=== PATIENT | male | born 1960 | race Caucasian/White ===

== ENCOUNTER → 2017-01-14 | Outpatient (CLI) | payer BC ==
--- NOTE | 2017-01-14 22:58 | PN ---
DATE OF SERVICE: 01/14/2017 This patient is a 56-year-old gentleman who has been followed in the sleep center for treatment of obstructive sleep apnea/hypopnea syndrome. Patient has extremely severe obstructive sleep apnea. He is on treatment with CPAP at the pressure 15 cm of water. I checked his CPAP unit. Usage for more than 4 hours is 30 out of 30 nights; subsequently 100% of the time. Average usage 7.4 hours. Patient's weight is about the same as during the last visit; it was 350 last visit and 349 today. [place] Sleepiness Scale is 8. No snoring with the machine. MEDICATIONS: 1. Androgel. 2. Lisinopril. 3. Metformin. 4. Hydrochlorothiazide. 5. Atenolol. 6. Allopurinol. 7. Synthroid. PHYSICAL EXAMINATION: Patient in no distress. VITAL SIGNS: BP 190/95, HR 60, RR 16. Height 5 feet 8 inches. Weight 349. BMI 53. Temperature 97.9. Oxygen saturation at room air 96%. HEENT: PERRLA, EOMI. Evaluation of oropharynx showed tongue protrudes midline; low position of soft palate. NECK: Supple. No JVD. Thyroid is not palpable. LUNGS: Clear to percussion and to auscultation. Good air exchange. No wheezing or rhonchi. HEART: S1, S2 regular. No murmurs, gallops or rubs. ABDOMEN: Obese. EXTREMITIES: No clubbing or cyanosis. EXPLOITATION ANALYST: Awake, alert, and oriented x3. Cranial nerves 2 to 7 intact. There is no fasciculation or atrophy noted. No focal deficits observed. IMPRESSION: 1. Severe obstructive sleep apnea-hypopnea syndrome. Apnea-hypopnea index 92. Patient has demonstrated 100% compliance with treatment on CPAP at 15 cm of water, benefitting from treatment. 2. Obesity. 3. Hypertension. 4. Gout. 5. Hyperlipidemia. 6. Hypothyroidism. PLAN: 1. Continue treatment with CPAP every night for the whole night. 2. Prescription for all necessary CPAP supplies, including tube, filters and mask. 3. Losing weight. 4. Sleep hygiene with regular time in bed for at least 8 hours. 5. No driving if feeling any sleepiness. 6. Follow-up visit in one year. Thank you very much for allowing me to participate in the management of your patient. Sincerely, Jean Lackey MD, PhD, FAASM. Diplomat of [place] Board [employer] Sleep Medicine, Sleep Medicine Board by [place] [employer], [place] Board of [employer] Medicine
== END | disposition home or self-care (01) ==
LOC: SLEEP 14:53
PROVIDERS: ATTEND Internal Medicine
DX: G47.33 Obstructive sleep apnea (adult) (pediatric) (principal); E66.9 Obesity, unspecified; Z68.43 Body mass index [BMI] 50.0-59.9, adult; I10 Essential (primary) hypertension; M10.9 Gout, unspecified; E78.5 Hyperlipidemia, unspecified; E03.9 Hypothyroidism, unspecified; Z79.899 Other long term (current) drug therapy; Z79.84 Long term (current) use of oral hypoglycemic drugs

== ENCOUNTER 2017-04-12 07:09 | Day surgery (SDC) | payer BC ==
[2017-04-07 15:39] VITALS: BMI 50.2
[~2017-04-12 07:09] MED LIST: LACTATED RINGERS 1,000 ML IV ONE; LACTATED RINGERS 1,000 ML IV SCH; LIDOCAINE 1% 20 ML VIAL (10MG/ML) FOR IV START INTRADERMA PRN
[2017-04-12 07:48] VITALS: RESP 16; TEMP 98.8
[2017-04-12 07:52] LABS: Glucose,Whole Blood 170 mg/dL (75-99)
[2017-04-12] MEDS ORDERED: MIDAZOLAM 2 MG/2 ML VIAL ONE (08:35)
[2017-04-12] MEDS ORDERED: PROPOFOL 10 MG/ML 20 ML VIAL IV ONE (08:35)
[2017-04-12] MEDS ORDERED: fentaNYL (PF) 50 MCG/ML 2 ML AMP ONE (08:35)
--- NOTE | 2017-04-12 09:06 | P.PCN ---
Date of Procedure: 04/12/17 Preoperative Diagnosis: Postoperative Diagnosis: Procedure(s) Performed: Procedure: Total colonoscopy. Preoperative diagnosis: Screening for neoplasia. Postoperative diagnosis: Mild sigmoid diverticulosis. Preparation: HalfLytely prep. Sedation: Was provided by anesthesia. Brief clinical history: The patient is a 56-year-old male who is scheduled for this evaluation for screening for neoplasia. There is family history of colon cancer in his maternal grandfather. The patient has history of intermittent rectal bleeding and frequent bowel movements. His prior exam was in July 2010. At that time I recommended a repeat exam in 5 years. Procedure: With the patient on his left lateral decubitus position and after informed consent and adequate sedation, the perianal area was inspected and it did not show any fissures or fistulas. There were no masses felt on digital rectal examination. The Olympus CFQ 160L video colonoscope was then inserted in the rectum in the usual fashion and advanced to the cecum. There was occasional small diverticular orifice seen in the sigmoid with no evidence of acute diverticulitis or strictures. No polyps or tumors were seen. The mucosa appeared healthy. I retroflexed the endoscope in the rectum before the endoscope was withdrawn. No obvious abnormalities were noted. The patient tolerated the procedure well. Plan: The patient was reassured. Discussed dietary measures. He will follow up with you as planned and I recommended repeat exam in 5 years. Implants: Indications for Procedure: Operative Findings: Description of Procedure:
[2017-04-12 09:22] VITALS: BP 164/75; PULSE 57
== END 2017-04-12 09:58 | disposition home or self-care (01) ==
LOC: ORWHC2ENDO 07:09
DX: K57.30 Diverticulosis of large intestine without perforation or abscess without bleeding (principal); Z80.0 Family history of malignant neoplasm of digestive organs; I10 Essential (primary) hypertension; E78.5 Hyperlipidemia, unspecified; G47.33 Obstructive sleep apnea (adult) (pediatric); Z99.89 Dependence on other enabling machines and devices; Z87.891 Personal history of nicotine dependence; E11.9 Type 2 diabetes mellitus without complications; Z79.84 Long term (current) use of oral hypoglycemic drugs; E07.9 Disorder of thyroid, unspecified; Z79.899 Other long term (current) drug therapy; Z88.8 Allergy status to other drugs, medicaments and biological substances
CPT/HCPCS: 45378; J2250; J3010; J2704

== ENCOUNTER → 2017-07-07 | Outpatient (CLI) | payer BC ==
--- NOTE | 2017-07-08 05:57 | MR ---
EXAMINATION TYPE: MR shoulder RT wo con DATE OF EXAM: 07/07/2017 COMPARISON: NONE HISTORY: Right shoulder pain with difficulty raising overhead since trip and fall injury December 07, 2015 per patient TECHNIQUE: Multiplanar, multisequence imaging of the right shoulder is performed without contrast. FINDINGS: Rotator Cuff: There is full-thickness retracted tear of supraspinatus tendon with tendon retracted ro ughly 3 cm to level of the acromion seen best parasagittal image 13. Infraspinatus tendon also shows full-thickness tear retracted roughly 4 cm to level of acromioclavicular joint. Mild to moderate atro phy of supraspinatus muscle bulk is seen. Advanced atrophy of the infraspinatus muscle bulk is noted. Teres minor tendon and bulk are maintained. There is increased signal in the subscapularis tendon. Acromioclavicular Joint: There is joint space loss and capsular hypertrophy at acromioclavicular join t. Inferior fat plane is effaced. Distal acromion morphology is unremarkable. Glenohumeral Joint: There is high riding humeral head. There is small to moderate-sized glenohumeral joint effusion. Joint space loss is seen along superior aspect. No significant spurring is noted. Labrum: The labrum appears grossly intact given limitation of non-arthrogram study. Biceps Tendon: The long head of biceps is in normal location within bicipital groove. Bone marrow signal: No focal abnormal marrow signal is appreciated. Other: No additional significant abnormality is appreciated. IMPRESSION: 1. Full-thickness retracted tears of supraspinatus and infraspinatus tendons felt to be chronic in ag e as there is muscular atrophy and high riding humeral head redemonstrated. 2. Background moderate to advanced degenerative changes at acromioclavicular joint and more mild to m oderate degenerative changes at glenohumeral joint. 3. Moderate subscapularis tendinitis.
== END | disposition home or self-care (01) ==
LOC: RADMRIMAIN 16:41
PROVIDERS: ATTEND Family Medicine
DX: S46.011A Strain of muscle(s) and tendon(s) of the rotator cuff of right shoulder, initial encounter (principal); M75.91 Shoulder lesion, unspecified, right shoulder

== ENCOUNTER → 2018-06-23 | Outpatient (CLI) | payer BC ==
--- NOTE | 2018-06-23 18:36 | PN ---
PROGRESS NOTE DATE OF SERVICE: 06/23/2018 57-year-old gentleman who has been followed in Sleep Center for treatment of obstructive sleep apnea-hypopnea syndrome. Patient continued to use his equipment every night for the whole night without any significant problems. No snoring with the machine. He is getting all of his some CPAP supplies and time. [place] Sleepiness Scale today is 5, which is normal. No significant changes of weight. MEDICATIONS: Testosterone, metformin atenolol, losartan, allopurinol, Januvia, amlodipine, Synthroid, fenofibrate. PHYSICAL EXAM: GENERAL Patient in no distress. VITAL SIGNS BP 154/74, HR 64, RR 16, height 5 foot 8 inches, weight 351, BMI 53.3, temperature 98.9, oxygen saturation on room air 95%. HEENT PERRLA, EOMI, evaluation of oropharynx showed low position of soft palate. NECK Supple, no JVD. Thyroid is not palpable. LUNGS Clear to percussion and to auscultation. Good air exchange. No wheezing or rhonchi. HEART S1, S2 regular. No murmurs, gallops, or rubs. ABDOMEN Obese. Soft and nontender. Bowel sounds are present. No organomegaly appreciated. EXTREMITIES No clubbing or cyanosis. ORTHOPHOTO TECH/DRAFTSMAN Awake, alert, and oriented X3. Cranial nerves 2 to 7 intact. There is no fasciculation or atrophy. noted. No focal deficits observed. IMPRESSION: 1. Severe obstructive sleep apnea-hypopnea syndrome. The patient continued to use his CPAP equipment every night without problems benefitting from treatment. 2. Obesity. 3. Hypertension. 4. Gout. 5. Hyperlipidemia. 6. Hypothyroidism. 7. Diabetes mellitus. PLAN: 1. Patient will continue to use CPAP equipment every night for the whole night. 2. Losing weight. 3. Sleep hygiene with regular time in bed for at least 8 hours. 4. No driving if feeling sleepiness. 5. Will maintain prescription for all necessary CPAP supplies including mask, tube, filters. Thank you very much for allowing me to participate in management of your patient. Sincerely, Jean Lackey MD, PhD, FAASM Diplomat of [place] [employer] Specialties [place] Board of Internal Medicine Microbiology Analyst of [facility] [place] MMODL / IJN: [id number] /
== END | disposition home or self-care (01) ==
LOC: SLEEP 16:29
PROVIDERS: ATTEND Internal Medicine
DX: G47.33 Obstructive sleep apnea (adult) (pediatric) (principal); E66.9 Obesity, unspecified; I10 Essential (primary) hypertension; M10.9 Gout, unspecified; E78.5 Hyperlipidemia, unspecified; E03.9 Hypothyroidism, unspecified; E11.9 Type 2 diabetes mellitus without complications; Z68.43 Body mass index [BMI] 50.0-59.9, adult; Z99.89 Dependence on other enabling machines and devices; Z79.84 Long term (current) use of oral hypoglycemic drugs; Z79.899 Other long term (current) drug therapy

== ENCOUNTER → 2018-12-01 | Outpatient (CLI) | payer BC ==
--- NOTE | 2018-12-01 18:08 | PN ---
PROGRESS NOTE DATE OF SERVICE: 12/01/2018. 58-year-old gentleman has been followed in Sleep Center for treatment of obstructive sleep apnea-hypopnea syndrome. Patient continued to use his CPAP equipment every night for the whole night. No snoring with the machine. [place] Sleepiness Scale is 8, which is normal. I checked his CPAP unit. Usage is every night for more than 4 hours. Average usage 8.1 hours. CPAP is 15 cm of water. Ramp is 15 minutes. Some of the cables of the machine are old and close to be broken. Machine is close to 5-years-old. MEDICATIONS: Testosterone metformin, atenolol, losartan, Allopurinol, Januvia, amlodipine, Synthroid, fenofibrate. PHYSICAL EXAM: Patient in no distress. BP 147/83, HR 61, RR 16, height 5 feet 9 inches, weight 352.6 with body mass index 51.9, temperature 98.2, oxygen saturation at room air 95% with a normal gait. Oropharynx: Low position of soft palate. Mallampati 4. Neck Supple, no JVD. Thyroid is not palpable. LUNGS Clear to percussion and to auscultation. Good air exchange. No wheezing or rhonchi. HEART S1, S2 regular. No murmurs, gallops, or rubs. ABDOMEN: Obese. Soft and nontender. Bowel sounds are present. No organomegaly appreciated. EXTREMITIES No clubbing or cyanosis. MANAGER HARDWARE Awake, alert, and oriented X3. Cranial nerves 2 to 7 intact. There is no fasciculation or atrophy. noted. No focal deficits observed. IMPRESSION: 1. Severe obstructive sleep apnea-hypopnea syndrome patient demonstrated 100% compliance with treatment benefitting from treatment. 2. Obesity. 3. Hypertension. 4. Gout. 5. Hypothyroidism. 6. Hyperlipidemia. 7. Diabetes mellitus type 2. 8. Low testosterone level. PLAN: 1. Patient will continue CPAP equipment every night for the whole night. 2. Losing weight. 3. Sleep hygiene with regular time in bed for at least 8 hours. 4. No driving if feeling sleepiness. 5. Prescription for all necessary CPAP supplies including mask, tube and filters. The patient will replace his CPAP unit, it is old. Thank you very much for allowing me to participate in management of your patient. Sincerely, Jean Lackey MD, PhD, FAASM Diplomat of [place] [employer] Specialties [place] Board of Internal Medicine Interim Controller of [facility] [place] MMREI / ALEXANDRON: [id number] /
== END ==
LOC: SLEEP 15:51
PROVIDERS: ATTEND Internal Medicine
DX: G47.33 Obstructive sleep apnea (adult) (pediatric) (principal); E66.9 Obesity, unspecified; I10 Essential (primary) hypertension; M10.9 Gout, unspecified; E03.9 Hypothyroidism, unspecified; E78.5 Hyperlipidemia, unspecified; E11.9 Type 2 diabetes mellitus without complications; E34.9 Endocrine disorder, unspecified; Z99.89 Dependence on other enabling machines and devices; Z68.43 Body mass index [BMI] 50.0-59.9, adult; Z79.899 Other long term (current) drug therapy; Z79.84 Long term (current) use of oral hypoglycemic drugs

== ENCOUNTER → 2019-12-14 | Outpatient (CLI) | payer BC ==
--- NOTE | 2019-12-14 17:15 | PN ---
PROGRESS NOTE DATE OF SERVICE: 12/14/2019 This patient is a 59-year-old gentleman who has been followed in Sleep Center for treatment of obstructive sleep apnea-hypopnea syndrome. The patient successfully continues to use CPAP equipment every night for the whole night. I checked his CPAP unit, which is old. The wire connected to the electrical supply is broken. Usage of the machine is 30/30 nights for more than 4 hours with average usage 8.2 hours per night. CPAP pressure is 15 cm of water. [place] Sleepiness Scale today is 9. MEDICATIONS: Testosterone, metformin, losartan, hydrochlorothiazide, fenofibrate, amlodipine, atenolol, glimepiride, hydralazine, allopurinol, Synthroid, Januvia. PHYSICAL EXAMINATION: GENERAL: A pleasant patient in no distress. VITAL SIGNS: BP 159/89, HR 62, RR 18, height 5 feet 9-1/4 inches, weight 365.4 pounds, body mass index 53.5. Patient's weight has increased by 13 pounds compared with the previous visit. Temperature 98.4. Oxygen saturation at room air 96%. HEENT: PERRLA, EOMI. Evaluation of oropharynx showed tongue protrudes midline. Extremely low position of soft palate. Mallampati IV. NECK: Supple. No JVD. Thyroid is not palpable. LUNGS: Clear to percussion and to auscultation. Good air exchange. No wheezing or rhonchi. HEART: S1, S2 regular. No murmurs, gallops or rubs. ABDOMEN: Obese. EXTREMITIES: No clubbing or cyanosis. DIRECTOR CLINICAL RESEARCH: Awake, alert, and oriented X3. Cranial nerves 2 to 7 intact. There is no fasciculation or atrophy. noted. No focal deficits observed. IMPRESSION: 1. Severe obstructive sleep apnea-hypopnea syndrome. Patient demonstrated 100% compliance with treatment, benefitting from treatment. 2. CPAP unit is old. Electrical cord is broken. MMODL / IJN: [id number] /
--- NOTE | 2019-12-14 17:21 | PN ---
PROGRESS NOTE ADDENDUM TO PROGRESS NOTE: DATE OF SERVICE: 12/14/2019 IMPRESSION: 1. Severe obstructive sleep apnea-hypopnea syndrome. Patient demonstrated 100% compliance with treatment, benefitting from treatment. His CPAP unit is old, with some problems with the wire connected to the electrical supply. 2. Obesity. 3. Hypertension. 4. Gout. 5. Hypothyroidism. 6. Hyperlipidemia. 7. Diabetes mellitus, type 2. 8. Low testosterone level. PLAN: 1. Patient will continue to use CPAP therapy every night for the whole night. 2. Prescription for new CPAP unit and all necessary supplies. 3. Losing weight. 4. No driving if feeling any sleepiness. Thank you very much for allowing me to participate in the management of your patient. Sincerely, Jean Lackey MD, PhD, FAASM Diplomat of [place] [employer] Medical Specialties [place] Board of Internal Medicine Rougher Helper of [facility] [place] RITESHL / CECILIO: [id number] /
== END | disposition home or self-care (01) ==
LOC: SLEEP 15:58
PROVIDERS: ATTEND Internal Medicine
DX: G47.33 Obstructive sleep apnea (adult) (pediatric) (principal); E66.9 Obesity, unspecified; I10 Essential (primary) hypertension; M10.9 Gout, unspecified; E03.9 Hypothyroidism, unspecified; E78.5 Hyperlipidemia, unspecified; E11.9 Type 2 diabetes mellitus without complications; N50.89 Other specified disorders of the male genital organs; Z99.89 Dependence on other enabling machines and devices; Z68.43 Body mass index [BMI] 50.0-59.9, adult; Z79.890 Hormone replacement therapy; Z79.84 Long term (current) use of oral hypoglycemic drugs; Z79.899 Other long term (current) drug therapy

== ENCOUNTER → 2020-12-11 | Outpatient (CLI) | payer OTHER ==
--- NOTE | 2020-12-11 21:03 | SFUN ---
SLEEP CENTER FOLLOW UP NOTE DATE OF SERVICE: 12/11/2020 This is a 60-year-old gentleman who has been followed in Sleep Center for treatment of obstructive sleep apnea-hypopnea syndrome. Patient continues to use his CPAP equipment every night for the whole night. He does not snore with the machine. [place] Sleepiness Scale today is 7, which is normal. I checked his CPAP unit. CPAP pressure is 15 cm of water. Usage is 29/30 nights for more than 4 hours. Leak is 25 L/minute, which is borderline. Apnea-hypopnea index is only 1.2, which is absolutely perfect. MEDICATIONS: 1. Losartan 100/25 mg once a day. 2. Metformin 500 mg twice a day by 2 tablets. 3. Amlodipine 10 mg once a day. 4. Fenofibrate 200 mg once a day. 5. Atenolol 50 mg twice a day. 6. Glimepiride 4 mg once a day. 7. Januvia 100 mg once a day. 8. Allopurinol 300 mg once a day. 9. Synthroid once a day. 10.Testosterone gel 75 grams once a day. PHYSICAL EXAMINATION: GENERAL: A pleasant gentleman without distress. VITAL SIGNS: BP 159/75, HR 51, RR 18, height 5 feet 8-1/2 inches, weight 351.4 pounds. Patient lost 14 pounds since his previous visit. HEENT: [place]. Evaluation of oropharynx showed tongue protrudes midline. Extremely low position of soft palate. Mallampati IV. NECK: Supple. No JVD. Thyroid is not palpable. LUNGS: Clear to percussion and to auscultation. Good air exchange. No wheezing or rhonchi. HEART: S1, S2 regular. No murmurs, gallops or rubs. ABDOMEN: Soft and nontender. Bowel sounds are present. No organomegaly appreciated. EXTREMITIES: No clubbing or cyanosis. NIGHT CUSTODIAN: Awake, alert, and oriented X3. Cranial nerves 2 to 7 intact. There is no fasciculation or atrophy. noted. No focal deficits observed. IMPRESSION: 1. Severe obstructive sleep apnea-hypopnea syndrome. The patient demonstrated 100% compliance with treatment, benefitting from treatment. 2. Obesity. 3. Hypertension. 4. Gout. 5. Hypothyroidism. 6. Hyperlipidemia. 7. Diabetes mellitus, type 2. 8. Low testosterone level. PLAN: 1. Patient will continue to use PAP equipment every night for the whole night. 2. Sleep hygiene with regular time in bed for at least 7-1/2 to 8 hours. 3. Precautions related to driving. No driving if feeling sleepiness. 4. I will maintain all necessary prescription for PAP supplies including mask, tube, filters. 5. Watching weight. 6. No driving if feeling sleepiness. 7. Follow-up visit in 6 months or earlier if patient has any problems. Thank you very much for allowing me to participate in the management of your patient. Sincerely, Jean Lackey MD, PhD, FAASM Diplomat of [place] [employer] Medical Specialties [place] Board of Internal Medicine Metal Fabrication Supervisor of [facility] [place] MMODL / ALEXANDRON: [id number] /
== END | disposition home or self-care (01) ==
LOC: SLEEP 15:14
PROVIDERS: ATTEND Internal Medicine
DX: G47.33 Obstructive sleep apnea (adult) (pediatric) (principal); E66.9 Obesity, unspecified; I10 Essential (primary) hypertension; M10.9 Gout, unspecified; E03.9 Hypothyroidism, unspecified; E78.5 Hyperlipidemia, unspecified; Z99.89 Dependence on other enabling machines and devices; Z79.899 Other long term (current) drug therapy; Z79.84 Long term (current) use of oral hypoglycemic drugs; Z79.890 Hormone replacement therapy

== ENCOUNTER → 2021-06-03 | Outpatient (CLI) | payer OTHER ==
--- NOTE | 2021-06-03 12:01 | XR ---
EXAM TYPE: LUMBAR SPINE X RAY SERIES COMPARISON: NONE HISTORY: Pain TECHNIQUE: 4 views are submitted. FINDINGS: Alignment is anatomic. The pedicles are intact. The transverse processes are intact. There is a sl ight anterolisthesis grade 1 of L4 on L5.. Multilevel facet arthropathy. Diffuse osteopenia. Multilev el mild degenerative disc disease. Vascular calcifications noted. IMPRESSION: 1. Diffuse osteopenia with mild multilevel degenerative disc disease not very slight anterolisthesis of L4 on L5 appears degenerative. 2. Multilevel facet arthropathy most marked at levels L4-5 and L5-S1.
== END | disposition home or self-care (01) ==
LOC: RADXRYALE 11:39
PROVIDERS: ATTEND Family Medicine
DX: M51.36 Other intervertebral disc degeneration, lumbar region (principal); M12.88 Other specific arthropathies, not elsewhere classified, other specified site
CPT/HCPCS: 72110

== ENCOUNTER → 2021-07-17 | Outpatient (CLI) | payer OTHER ==
--- NOTE | 2021-07-17 17:49 | SFUN ---
SLEEP CENTER FOLLOW UP NOTE DATE OF SERVICE: 07/17/2021 This 60-year-old gentleman has been followed in Sleep Center for treatment of obstructive sleep apnea-hypopnea syndrome. The patient continues to use his CPAP equipment during the night, every night and for the whole night. He actually has another CPAP unit [place] and sometimes uses another machine. [place] Sleepiness Scale is 7. I checked his CPAP unit. CPAP pressure is 15 cm of water. Usage is 15/30 nights for the last month with average usage 9.5 hours per night. Leak is 20 L/minute. Apnea- hypopnea index 1.3. On other nights, according to the patient, he is using another CPAP unit. MEDICATIONS: 1. Atenolol 50 mg twice a day. 2. Synthroid 50 mcg once a day. 3. Fenofibrate 200 mg once a day. 4. Allopurinol 300 mg once a day. 5. Hydralazine 50 mg twice a day. 6. Norvasc 10 mg once a day. 7. Metformin 500 mg twice a day. 8. Glimepiride 4 mg twice a day. 9. Losartan/hydrochlorothiazide 10/25 mg once a day. 10.Januvia 100 mg once a day. 11.Testosterone. 12.Gabapentin 300 mg 3 times a day. PHYSICAL EXAMINATION: GENERAL: Pleasant patient in no distress. VITAL SIGNS: BP 167/75, HR 54, RR 15, height 5 feet 9 inches, weight 361.8 pounds, body mass index 51.9. The patient's weight is the same as 6 months ago. Temperature 97.5. Oxygen saturation at room air 95%. HEENT: PERRLA, EOMI, evaluation of oropharynx showed tongue protrudes midline. Extremely low position of soft palate; Mallampati IV. NECK: Supple, no JVD. Thyroid is not palpable. LUNGS: Clear to percussion and to auscultation. Good air exchange. No wheezing or rhonchi. HEART: S1, S2 regular. No murmurs, gallops, or rubs. ABDOMEN: Obese. EXTREMITIES: No clubbing or cyanosis. CUSTOMER LIAISON: Awake, alert, and oriented X3. Cranial nerves 2 to 7 intact. There is no fasciculation or atrophy. noted. No focal deficits observed. IMPRESSION: 1. Severe obstructive sleep apnea-hypopnea syndrome. Normal respiration on CPAP machine, benefitting from treatment. 2. Obesity. 3. Hypertension. 4. Gout. 5. Hypothyroidism. 6. Hyperlipidemia. 7. Diabetes mellitus, type 2. 8. Low testosterone level. PLAN: 1. The patient was recommended to bring his second CPAP unit for the next visit to check both CPAP units. 2. Patient will continue to use PAP equipment every night for the whole night. 3. Sleep hygiene with regular time in bed for at least 7-1/2 to 8 hours. 4. Precautions related to driving. No driving if feeling sleepiness. 5. I will maintain all necessary prescription for PAP supplies including mask, tube, filters. 6. Watching weight. 7. Follow-up visit in 6 months or earlier if patient has any problems. Thank you very much for allowing me to participate in the management of your patient. Sincerely, Jean Lackey MD, PhD, FAASM Diplomat of [place] [employer] Specialties Sleep Medicine Board of [place] Board of Internal Medicine Isolation Washer of [facility] [place] MMODL / ALEXANDRON: [id number] /
== END ==
LOC: SLEEP 14:01
PROVIDERS: ATTEND Internal Medicine
DX: G47.33 Obstructive sleep apnea (adult) (pediatric) (principal); E66.9 Obesity, unspecified; I10 Essential (primary) hypertension; E03.9 Hypothyroidism, unspecified; E11.9 Type 2 diabetes mellitus without complications; M10.9 Gout, unspecified; E29.1 Testicular hypofunction; Z68.43 Body mass index [BMI] 50.0-59.9, adult; Z79.84 Long term (current) use of oral hypoglycemic drugs; Z79.899 Other long term (current) drug therapy; Z99.89 Dependence on other enabling machines and devices; Z87.891 Personal history of nicotine dependence; Z88.8 Allergy status to other drugs, medicaments and biological substances

== ENCOUNTER → 2021-08-22 | Day surgery (SDC) | payer OTHER ==
[2021-08-19 11:31] VITALS: BMI 51.7
[~2021-08-22] MED LIST changes: +KETAMINE 10 MG/ML 20 ML VIAL ONE; -LACTATED RINGERS 1,000 ML IV ONE; +LIDOCAINE 1% (10MG/ML) FOR IV START INTRADERMA PRN; -LIDOCAINE 1% 20 ML VIAL (10MG/ML) FOR IV START INTRADERMA PRN; +MIDAZOLAM 2 MG/2 ML VIAL ONE; +PROPOFOL 10 MG/ML 20 ML VIAL IV ONE
[2021-08-22 07:55] VITALS: TEMP 97.9
[2021-08-22 08:09] LABS: Glucose,Whole Blood 105 mg/dL (75-99)
--- NOTE | 2021-08-22 08:55 | P.PCN ---
Date of Procedure: 08/22/21 Procedure(s) Performed: BRIEF HISTORY: Patient is a 60-year-old pleasant white male scheduled for an elective colonoscopy as a part of screening for colorectal neoplasia. PROCEDURE PERFORMED: Colonoscopy with biopsy. PREOPERATIVE DIAGNOSIS: Screening for colon cancer. IV sedation per Anesthesia. PROCEDURE: After informed consent was obtained, the patient, was brought into the endoscopy unit. IV sedation was administered by Anesthesia under continuous monitoring. Digital rectal examination was normal. Initially the Olympus CF-160 flexible video colonoscope was then inserted in the rectum, gradually advanced into the cecum without any difficulty. Careful examination was performed as the scope was gradually being withdrawn. Ileocecal valve and the appendiceal orifice were visualized and appeared normal. Prep was excellent. Mucosa of the cecum, ascending colon, transverse colon, descending colon, sigmoid colon, and rectum appeared normal. In the proximal rectum there was a 5 mm polyp that was removed by cold biopsy. Retroflexion was performed in the rectum and no lesions were seen. The patient tolerated the procedure well. IMPRESSION: 5 mm proximal rectal polyp status post cold biopsy Rest of the colon appeared normal RECOMMENDATIONS: Findings of this examination were discussed with the patient as well as his family. He was advised to follow with the biopsy results. If the biopsy results when he can have a repeat colonoscopy in 5 years.
[2021-08-22 09:16] VITALS: RESP 16
[2021-08-22 09:36] VITALS: BP 126/62; PULSE 44
== END ==
LOC: ORWHC2ENDO 07:08
PROVIDERS: ATTEND Internal Medicine Gastroenterology
DX: Z12.11 Encounter for screening for malignant neoplasm of colon (principal); D12.8 Benign neoplasm of rectum
CPT/HCPCS: 45380; 88305; J2250; J2704

== ENCOUNTER → 2022-01-15 | Outpatient (CLI) | payer OTHER ==
--- NOTE | 2022-01-15 16:33 | SFUN ---
SLEEP CENTER FOLLOW UP NOTE DATE OF SERVICE: 01/15/2022 This 61-year-old gentleman has been followed in [facility] for treatment of obstructive sleep apnea-hypopnea syndrome. The patient continues to use CPAP equipment every night. At present he is using two machines; [place] problems with using the equipment. He is getting his supplies on time. [place] Sleepiness Scale is 8, which is normal. I checked his CPAP units. Both machines have pressure of 15. Usage of both machine together is 100% of nights for more than 4 hours, average 8 hours per night. Leak is around 25 L/minute. Apnea-hypopnea index is in normal range at 1.3. One machine was used 18/30 nights and the other machine was use nights. Consequently, again, a CPAP machine was used on all nights. MEDICATIONS: 1. Atenolol 50 mg twice a day. 2. Fenofibrate 200 mg once a day. 3. Synthroid 50 mcg once a day. 4. Allopurinol 300 mg once a day. 5. Hydralazine 50 mg twice a day. 6. Metformin 500 mg twice a day. 7. Glimepiride 4 mg twice a day. 8. Losartan/hydrochlorothiazide 100/25 mg once a day. 9. Januvia 100 mg once a day. 10.Gabapentin 300 mg 4 times a day. 11.Testosterone. PHYSICAL EXAMINATION: GENERAL: Pleasant patient in no distress. VITAL SIGNS: BP 159/75, HR 57, RR 18, weight 354 pounds. Height 5 feet 9 inches. Patient lost 7 pounds. Temperature 97.3, oxygen saturation at room air 96%. HEENT: PERRLA, EOMI, evaluation of oropharynx showed tongue protrudes midline. Extremely low position of soft palate; Mallampati IV. NECK: Supple, no JVD. Thyroid is not palpable. LUNGS: Clear to percussion and to auscultation. Good air exchange. No wheezing or rhonchi. HEART: S1, S2 regular. No murmurs, gallops, or rubs. ABDOMEN: Obese. EXTREMITIES: No clubbing or cyanosis. DIRECTOR REGULATORY COMPLIANCE: Awake, alert, and oriented X3. Cranial nerves 2 to 7 intact. There is no fasciculation or atrophy. noted. No focal deficits observed. IMPRESSION: 1. Obstructive sleep apnea-hypopnea syndrome in severe range. The patient demonstrated 100% compliance with treatment, benefitting from treatment. 2. Obesity. 3. Hypertension. 4. Hypothyroidism. 5. Gout. 6. Diabetes mellitus, type 2. 7. Hyperlipidemia. 8. Low testosterone level. PLAN: 1. Patient will continue to use PAP equipment every night for the whole night. 2. Sleep hygiene with regular time in bed for at least 7-1/2 to 8 hours. 3. Precautions related to driving. No driving if feeling sleepiness. 4. I will maintain all necessary prescription for PAP supplies including mask, tube, filters. 5. Watching weight. 6. Follow-up visit in 6 months or earlier if patient has any problems. Thank you very much for allowing me to participate in the management of your patient. Sincerely, Jean Lackey MD, PhD, FAASM Diplomat of [employer] Sleep Medicine Board of [employer] [facility] Niland MMODL / ALEXANDRON: [id number] /
== END ==
LOC: SLEEP 13:45
PROVIDERS: ATTEND Internal Medicine
DX: G47.33 Obstructive sleep apnea (adult) (pediatric) (principal); E66.9 Obesity, unspecified; I10 Essential (primary) hypertension; E03.9 Hypothyroidism, unspecified; E11.9 Type 2 diabetes mellitus without complications; E78.5 Hyperlipidemia, unspecified; M10.9 Gout, unspecified; Z99.89 Dependence on other enabling machines and devices; Z79.890 Hormone replacement therapy; Z79.84 Long term (current) use of oral hypoglycemic drugs; Z87.891 Personal history of nicotine dependence; Z88.8 Allergy status to other drugs, medicaments and biological substances

== ENCOUNTER → 2024-05-03 | Outpatient (CLI) | payer OTHER ==
--- NOTE | 2024-05-03 09:44 | US ---
EXAMINATION TYPE: US venous doppler duplex LE BI DATE OF EXAM: 05/03/2024 9:16 AM COMPARISON: NONE CLINICAL INDICATION: Male, 63 years old with history of M79.605 LEFT LEG M79.604 RIGHT LEG R60.9 NYDIA A; Bilateral leg edema SIDE PERFORMED: Bilateral TECHNIQUE: The lower extremity deep venous system is examined utilizing real time linear array sonog rohan with graded compression, doppler sonography and color-flow sonography. VESSELS IMAGED: Common Femoral Vein Deep Femoral Vein Greater Saphenous Vein * Femoral Vein Popliteal Vein Small Saphenous Vein * Proximal Calf Veins (* superficial vessels) Right Leg: Negative for DVT, abnormal appearing lymph node within right groin anterior to right GSV= 1.8 x 1.2 x 1.1 cm Left Leg: Negative for DVT Attempted to call 's office with results at time of exam, no answer IMPRESSION: 1. Bilateral lower extremity ultrasound negative for deep venous thrombosis. 2. Enlarged right inguinal node
== END | disposition home or self-care (01) ==
LOC: RADUSWWP 08:50
PROVIDERS: ATTEND Family Medicine
DX: M79.605 Pain in left leg (principal); M79.604 Pain in right leg; R59.0 Localized enlarged lymph nodes; R60.0 Localized edema
CPT/HCPCS: 93970

== ENCOUNTER → 2024-05-16 | Outpatient (CLI) | payer OTHER ==
--- NOTE | 2024-05-17 07:59 | XR ---
EXAMINATION TYPE: XR knee complete RT DATE OF EXAM: 05/16/2024 CLINICAL HISTORY: pain TECHNIQUE: Three views of the right knee are obtained. COMPARISON: None. FINDINGS: There is no acute fracture/dislocation. The tri-compartment joint spaces appear within no rmal limits. The overlying soft tissue appears unremarkable. IMPRESSION: There is no acute fracture or dislocation.ICD 10 NO FRACTURE, INITIAL EVALUATION
== END | disposition home or self-care (01) ==
LOC: RADXRYALE 15:11
PROVIDERS: ATTEND Family Medicine
DX: M25.561 Pain in right knee (principal)